=== PATIENT | female | born 1940 | race Caucasian/White ===

== ENCOUNTER 2018-12-29 14:23 | Inpatient (IN) | payer MEDICARE, BC ==
[~2018-12-29] VITALS: Ht 162.6 cm; Wt 69.4 kg
[2018-12-29] MEDS ORDERED: ONDANSETRON HCL 4MG/2ML INJ IV STA (16:49)
[2018-12-29] MEDS ORDERED: SODIUM CHLORIDE 0.9% 1,000 ML IV ONE (16:49)
[2018-12-29] MEDS ORDERED: MORPHINE SULFATE 4 MG/ML CPJ (NOT FOR IM USE) IV STA (16:49)
[2018-12-29 17:25] LABS: HEMATOCRIT. 46.7 % (36.0-48.0); HEMOGLOBIN. 16.1 g/dL (12.0-16.0); MEAN CORPUSCULAR HEMOGLOBIN 33.8 pg (28.0-32.0); MEAN CORPUSCULAR VOLUME 98.1 fL (81.0-99.0); MEAN PLATELET VOLUME 7.6 fl (7.4-10.4); PLATELET 470 x1000/uL (130-400); RED BLOOD CELL COUNT 4.76 mill/uL (4.2-5.4); RED CELL DISTRIBUTION WIDTH 13.2 % (11.6-14.6)
[2018-12-29 17:33] LABS: PARTIAL THROMBOPLASTIN TIME 27.4 sec (23.4-31.0); PROTHROMBIN TIME 10.2 sec (9.6-11.0)
[2018-12-29 17:34] LABS: CHLORIDE 100 mEq/L (98-107)
[2018-12-29 18:04] LABS: PLATELET ESTIMATE SLIGHTLY INCREASED
[2018-12-29 18:30] LABS: CLARITY URINE CLEAR (CLEAR); COLOR URINE DARK YELLOW (YELLOW); KETONES URINE 1+ (NEGATIVE); LEUKOCYTE ESTERASE URINE 1+ (NEGATIVE); NITRITE URINE NEGATIVE (NEGATIVE); OCCULT BLOOD URINE NEGATIVE (NEGATIVE); PROTEIN URINE TRACE (NEGATIVE); SPECIFIC GRAVITY URINE 1.016 (1.005-1.030)
[2018-12-29] MEDS ORDERED: METRONIDAZOLE 500 MG PREMIX 100 ML IV ONE (18:30)
[2018-12-29] MEDS ORDERED: LEVOFLOXACIN 500MG PREMIX 100 ML IV ONE (18:30)
[2018-12-29] MEDS ORDERED: MORPHINE SULFATE 4 MG/ML CPJ (NOT FOR IM USE) IV ONE (22:00)
[2018-12-29] MEDS ORDERED: KETOROLAC 30MG/ML VIAL IV ONE (22:00)
[2018-12-29] MEDS ORDERED: ONDANSETRON HCL 4MG/2ML INJ IV ONE (22:00)
[2018-12-30 01:43] VITALS: BP 105/60
[2018-12-30 04:00] VITALS: BP 91/50
[2018-12-30] MEDS: DEXT 5%/0.9% NACL 1,000 ML IV SCH ×2 (06:37→18:00)
[2018-12-30] MEDS: MORPHINE SULFATE 2 MG/ML CPJ (NOT FOR IM USE) IV PRN ×2 (10:02→14:14)
[2018-12-30] MEDS: ONDANSETRON HCL 4MG/2ML INJ IV PRN ×2 (10:02→14:15)
[2018-12-30 10:14] LABS: HEMATOCRIT. 41.9 % (36.0-48.0); HEMOGLOBIN. 14.3 g/dL (12.0-16.0); MEAN CORPUSCULAR HEMOGLOBIN 33.6 pg (28.0-32.0); MEAN CORPUSCULAR VOLUME 98.4 fL (81.0-99.0); MEAN PLATELET VOLUME 7.6 fl (7.4-10.4); PLATELET 351 x1000/uL (130-400); RED BLOOD CELL COUNT 4.26 mill/uL (4.2-5.4); RED CELL DISTRIBUTION WIDTH 13.4 % (11.6-14.6)
[2018-12-30 10:29] LABS: CHLORIDE 101 mEq/L (98-107)
[2018-12-30 11:17] LABS: PLATELET ESTIMATE NORMAL
[2018-12-30] MEDS: METRONIDAZOLE 500 MG PREMIX 100 ML IV SCH ×2 (12:32→22:15)
[2018-12-30] MEDS: LEVOFLOXACIN 250MG PREMIX 50 ML IV SCH (12:32)
[2018-12-30] MEDS ORDERED: SIMETHICONE 40 MG/0.6 ML 30ML ONE (14:11)
[2018-12-30] MEDS ORDERED: IOHEXOL-300 100 ML BOTTLE ONE (14:11)
[2018-12-30] MEDS ORDERED: PROPOFOL 10MG/ML 100ML 100 ML IV ONE (14:55)
[2018-12-30] MEDS ORDERED: MIDAZOLAM HCL 2 MG/2 ML VIAL ONE (15:03)
[2018-12-30] MEDS ORDERED: FENTANYL CITRATE/PF 50MCG/ML 2ML VIAL ONE (15:07)
[2018-12-30] MEDS ORDERED: PROPOFOL 200MG/20ML VIAL IV ONE (15:08)
[2018-12-30] MEDS ORDERED: VECURONIUM BROMIDE 10 MG/VIAL IV ONE (16:37)
[2018-12-30] MEDS ORDERED: ACETAMINOPHEN 325MG TABLET PO PRN (17:15)
[2018-12-30] MEDS ORDERED: KETOROLAC 15MG/ML VIAL IV PRN (17:15)
[2018-12-30] MEDS ORDERED: ONDANSETRON HCL 4MG/2ML INJ IV PRN (17:15)
[2018-12-30] MEDS: CEFEPIME 1,000 MG in DEXTROSE 5% WATER 50 ML IV SCH (18:00)
[2018-12-30 20:00] VITALS: BP 116/55
[2018-12-31] VITALS (10 sets, daily range): BP systolic 99–140; BP diastolic 51–91
[2018-12-31] MEDS: METRONIDAZOLE 500 MG PREMIX 100 ML IV SCH ×3 (05:31→21:03)
[2018-12-31] MEDS: CEFEPIME 1,000 MG in DEXTROSE 5% WATER 50 ML IV SCH ×2 (06:11→18:12)
[2018-12-31] MEDS: DEXT 5%/0.9% NACL 1,000 ML IV SCH ×2 (06:32→20:22)
[2018-12-31 06:44] LABS: HEMATOCRIT. 37.8 % (36.0-48.0); HEMOGLOBIN. 13.1 g/dL (12.0-16.0); MEAN CORPUSCULAR HEMOGLOBIN 33.9 pg (28.0-32.0); MEAN CORPUSCULAR VOLUME 97.7 fL (81.0-99.0); MEAN PLATELET VOLUME 7.5 fl (7.4-10.4); PLATELET 345 x1000/uL (130-400); RED BLOOD CELL COUNT 3.87 mill/uL (4.2-5.4); RED CELL DISTRIBUTION WIDTH 13.5 % (11.6-14.6)
[2018-12-31 06:45] LABS: CHLORIDE 104 mEq/L (98-107)
[2018-12-31] MEDS: LEVOFLOXACIN 250MG PREMIX 50 ML IV SCH (10:48)
[2018-12-31 14:37] LABS: PLATELET ESTIMATE NORMAL
[2018-12-31] MEDS ORDERED: DILTIAZEM HCL 5MG/ML 5ML VIAL IV NR (16:30)
[2018-12-31] MEDS ORDERED: SODIUM CHLORIDE 0.9% 500 ML IV ONE (16:30)
[2018-12-31 17:29] LABS: BASOPHILS % 0.4 % (0.0-2.0); EOSINOPHILS % 0.4 % (0.0-5.0); HEMATOCRIT. 38.9 % (36.0-48.0); HEMOGLOBIN. 13.3 g/dL (12.0-16.0); MEAN CORPUSCULAR HEMOGLOBIN 33.5 pg (28.0-32.0); MEAN PLATELET VOLUME 7.7 fl (7.4-10.4); MONOCYTES % 4.5 % (2.0-8.0); NEUTROPHILS % 84.7 % (40.0-76.0); PLATELET 349 x1000/uL (130-400); RED BLOOD CELL COUNT 3.97 mill/uL (4.2-5.4); RED CELL DISTRIBUTION WIDTH 13.5 % (11.6-14.6)
[2018-12-31 17:36] LABS: CHLORIDE 105 mEq/L (98-107)
[2018-12-31 17:42] LABS: PHOSPHORUS 1.5 mg/dL (2.5-4.9)
[2018-12-31] MEDS ORDERED: DILTIAZEM HCL 125 MG in DEXTROSE 5% WATER 125 ML IV SCH (18:00)
[2018-12-31] MEDS ORDERED: DIGOXIN 500MCG/2ML AMP IV SCH (20:30)
[2018-12-31] MEDS ORDERED: SODIUM PHOS,M-BASIC-D-BASIC 30 MM in DEXT 5% WATER 500 ML IV SCH (22:00)
[2019-01-01] VITALS (13 sets, daily range): BP systolic 104–139; BP diastolic 43–73
[2019-01-01] MEDS ORDERED: DILTIAZEM HCL 125 MG in DEXT 5% WATER 100 ML IV SCH (03:00)
[2019-01-01] MEDS: CEFEPIME 1,000 MG in DEXTROSE 5% WATER 50 ML IV SCH ×2 (06:09→17:01)
[2019-01-01] MEDS: METRONIDAZOLE 500 MG PREMIX 100 ML IV SCH ×3 (07:03→22:07)
[2019-01-01 07:44] LABS: HEMATOCRIT. 38.5 % (36.0-48.0); HEMOGLOBIN. 13.4 g/dL (12.0-16.0); LYMPHOCYTES % 12.7 % (20.0-50.0); MEAN PLATELET VOLUME 7.8 fl (7.4-10.4); MONOCYTES % 5.8 % (2.0-8.0); NEUTROPHILS % 80.6 % (40.0-76.0); PLATELET 376 x1000/uL (130-400); RED BLOOD CELL COUNT 3.93 mill/uL (4.2-5.4); RED CELL DISTRIBUTION WIDTH 13.6 % (11.6-14.6)
[2019-01-01 07:45] LABS: BASOPHILS % 0.3 % (0.0-2.0); EOSINOPHILS % 0.6 % (0.0-5.0)
[2019-01-01 08:59] LABS: CHLORIDE 105 mEq/L (98-107)
[2019-01-01 09:14] LABS: PHOSPHORUS 2.5 mg/dL (2.5-4.9)
[2019-01-01] MEDS: LEVOFLOXACIN 250MG PREMIX 50 ML IV SCH (10:21)
[2019-01-01] MEDS ORDERED: POTASSIUM CHLORIDE 20MEQ TABLET SR PO NR (11:00)
[2019-01-01] MEDS ORDERED: APIXABAN 5 MG TABLET PO SCH (11:45)
[2019-01-01] MEDS: DILTIAZEM HCL 30MG TABLET PO SCH ×2 (13:53→22:07)
[2019-01-02] VITALS (8 sets, daily range): BP systolic 121–151; BP diastolic 66–83
[2019-01-02] MEDS: CEFEPIME 1,000 MG in DEXTROSE 5% WATER 50 ML IV SCH (05:04)
[2019-01-02] MEDS: DILTIAZEM HCL 30MG TABLET PO SCH ×2 (05:20→13:37)
[2019-01-02] MEDS: METRONIDAZOLE 500 MG PREMIX 100 ML IV SCH (05:57)
[2019-01-02 06:09] LABS: BASOPHILS % 0.3 % (0.0-2.0); EOSINOPHILS % 0.7 % (0.0-5.0); HEMATOCRIT. 38.9 % (36.0-48.0); HEMOGLOBIN. 13.6 g/dL (12.0-16.0); LYMPHOCYTES % 17.2 % (20.0-50.0); MEAN CORPUSCULAR HEMOGLOBIN 33.9 pg (28.0-32.0); MEAN CORPUSCULAR VOLUME 96.8 fL (81.0-99.0); MEAN PLATELET VOLUME 7.4 fl (7.4-10.4); MONOCYTES % 9.5 % (2.0-8.0); NEUTROPHILS % 72.3 % (40.0-76.0); PLATELET 436 x1000/uL (130-400); RED BLOOD CELL COUNT 4.02 mill/uL (4.2-5.4)
[2019-01-02 06:55] LABS: CHLORIDE 105 mEq/L (98-107)
[2019-01-02] MEDS: LEVOFLOXACIN 250MG PREMIX 50 ML IV SCH (10:12)
== END 2019-01-02 14:15 | disposition home or self-care (01) | DRG 872 ==
LOC: ER 14:23 → 6WST 18:40 → EDBEDREQTM 18:45 → EDBEDREQ 18:45 → ENRESERV 22:10 → 3WST 12-31 17:49
PROVIDERS: ADMIT Family Medicine Adult Medicine; ATTEND Family Medicine Adult Medicine
PROC: 0F798DZ Dilation of Common Bile Duct with Intraluminal Device, Via Natural or Artificial Opening Endoscopic (ICD-10-PCS; principal; 2018-12-30)
PROC: BF141ZZ Fluoroscopy of Gallbladder, Bile Ducts and Pancreatic Ducts using Low Osmolar Contrast (ICD-10-PCS; 2018-12-30)
DX: A41.51 Sepsis due to Escherichia coli [E. coli] (principal); K80.31 Calculus of bile duct with cholangitis, unspecified, with obstruction; K57.32 Diverticulitis of large intestine without perforation or abscess without bleeding; N39.0 Urinary tract infection, site not specified; K80.20 Calculus of gallbladder without cholecystitis without obstruction; K82.8 Other specified diseases of gallbladder; E87.6 Hypokalemia; Z96.659 Presence of unspecified artificial knee joint; G51.0 Bell's palsy; K57.30 Diverticulosis of large intestine without perforation or abscess without bleeding; I48.0 Paroxysmal atrial fibrillation; Z90.49 Acquired absence of other specified parts of digestive tract; Z90.710 Acquired absence of both cervix and uterus; Z88.0 Allergy status to penicillin; Z88.2 Allergy status to sulfonamides
CPT/HCPCS: 36415; 71045; 74176; 74181; 74328; 76705; 80048; 80076; 83605; 83735; 83880; 84100; 84443; 84484; 87077; 87186; 93005; 93306; 93970; 96374; 96375; 99285; C1726; C1769; C2625; J0692; J1160; J1885; J1956; J2250; J2270; J2405; J2704; J3010; J3490; J7030; J7040; J7042; J7050; J7060; Q9967